=== PATIENT | female | born 1980 | race Caucasian/White ===

== ENCOUNTER 2017-01-08 15:52 | Emergency (ER) | payer SELFPAY ==
[2017-01-08 17:12] VITALS: BP 130/78
== END 2017-01-08 17:23 | disposition home or self-care (01) ==
LOC: ED 15:52
DX: N76.0 Acute vaginitis (principal)

== ENCOUNTER 2019-10-05 19:58 | Emergency (ER) | payer SELFPAY ==
[~2019-10-05] VITALS: Ht 154.9 cm; Wt 69.4 kg
[2019-10-05 20:09] VITALS: Ht 154.9 cm; Wt 69.4 kg
[2019-10-05 22:22] LABS: microscopic required? NO
[2019-10-05 23:14] VITALS: BP 110/60
[2019-10-05 23:18] LABS: urine erythrocyte NEGATIVE (NEGATIVE)
== END 2019-10-05 23:14 | disposition home or self-care (01) ==
LOC: ED 19:58
PROVIDERS: Specialist
DX: N39.0 Urinary tract infection, site not specified (principal); N89.8 Other specified noninflammatory disorders of vagina; Z98.890 Other specified postprocedural states
CPT/HCPCS: 87491; 87591; J0696